=== PATIENT | female | born 1960 | race Caucasian/White ===

== ENCOUNTER 2022-07-17 19:22 | Inpatient (IN) | payer OTHER ==
[~2022-07-17 19:22] MED LIST: Iopamidol-370 76% 500 ML 1 ML ONE
[2022-07-17 19:37] LABS: #Lymphocytes 1.3 thou/uL (1.20-3.40); #Monocytes 0.9 thou/uL (0.11-0.59); #Neutrophils 11.4 thou/uL (1.40-6.50); %Eosinophils 0.1 % (0.0-10.0); %Lymphocytes 9.5 % (21.0-51.0); %Monocytes 6.5 % (0.0-10.0); Hemoglobin 16.4 g/dL (12.0-16.0); Mean Corpuscular HGB CONC 34.7 g/dL (32.0-36.0); Mean Corpuscular Hemoglobin 35.2 pg (27.0-31.0); Mean Platelet Volume 7.6 fL (7.4-10.4); Platelet Count 147 10x3/uL (130-400); RBC Distribution Width 11.7 % (11.5-14.5); Red Blood Cell (RBC) Count 4.67 mill/uL (4.20-5.40); White Blood Cell (WBC) Count 13.6 10x3/uL (4.8-10.8)
[2022-07-17 19:46] LABS: INR-International Normal Ratio 1.1; PTT 30.4 sec (22.9-36.1); Prothrombin Time 14.2 sec (12.0-14.7)
[2022-07-17] MEDS ORDERED: Morphine 4 MG/ML VIAL ONE (19:57)
[2022-07-17 19:58] LABS: ALT (SGPT) 68 U/L (8-55); AST (SGOT) 73 U/L (5-34); Albumin 4.1 g/dL (3.4-4.8); Alkaline Phosphatase 76 U/L (40-110); Anion Gap 15 mmol/L (10-20); BUN (Urea Nitrogen) 11 mg/dL (9.8-20.1); CK (CPK) 765 U/L (29-168); Calc. Creatinine Clearance 0 mL/min (70-130); Calcium 9.9 mg/dL (7.8-10.44); Carbon Dioxide 21 mmol/L (23-31); Chloride 105 mmol/L (98-107); Estimated GFR 103; Globulin 3.7 g/dL (2.4-3.5); Glucose 121 mg/dL (80-115); Potassium 4.1 mmol/L (3.5-5.1); Protein, Total 7.8 g/dL (5.8-8.1); Sodium 137 mmol/L (136-145)
[2022-07-17 20:21] LABS: Bacteria/HPF 4+ HPF (None Seen); Bilirubin Negative (Negative); Blood, Urine 1+ (Negative); Clarity Extra Turbid (Clear); Glucose, Urine (Dipstick) Normal (Negative); Ketone, Urine Negative (Negative); Leukocyte 500 Leu/uL (Negative); Nitrite 2+ (Negative); Protein, Urine (Dipstick) 30 mg/dL (Neg-Trace); RBC/HPF 21-50 HPF (0-3); Squamous Epithelial 0-3 HPF (0-3); Urobilinogen Normal mg/dL (Less than 2); WBC/HPF Greater than 50 HPF (0-3)
[2022-07-17 20:23] LABS: Specific Gravity, Urine 1.054 (1.002-1.036)
[2022-07-17 20:23] LABS: CKMB 9.8 ng/mL (0-6.6)
[2022-07-17 20:27] LABS: Amphetamine Not Detected (NotDetected); Barbiturates Screen Not Detected (NotDetected); Benzodiazepine Screen Not Detected (NotDetected); Cocaine Metabolite Screen Not Detected (NotDetected); Methadone Not Detected (NotDetected); Methamphetamine Not Detected (NotDetected); Opiate Screen Not Detected (NotDetected); Oxycodone Screen Not Detected (NotDetected); Phencyclidine (PCP) Not Detected (NotDetected); THC/Cannabinoid Screen Not Detected (NotDetected); Tricyclic Screen Not Detected (NotDetected)
[2022-07-17] MEDS ORDERED: Aspirin 300 MG Suppository ONE (20:27)
[2022-07-17] MEDS ORDERED: cefTRIAXone\\ROCEPHIN 2 GM VIAL ONE (21:26)
[2022-07-17] MEDS ORDERED: Acetaminophen 650 MG Suppository PR PRN (21:51)
[2022-07-17] MEDS ORDERED: hydrALAZINE 20 MG/ML VIAL SLOW IVP PRN (21:51)
[2022-07-17] MEDS ORDERED: Ondansetron ODT 4 MG TAB PO PRN (21:51)
[2022-07-17] MEDS ORDERED: Ondansetron PF 4 MG/2 ML Vial IVP PRN (21:51)
[2022-07-17 22:06] LABS: SARS-CoV-2 NAA Rapid Test Not Detected (NotDetected)
[2022-07-17 22:51] LABS: Troponin I 1.418 ng/mL (< 0.028)
[2022-07-18] MEDS: Sodium Chloride 0.9% 1,000 ML IV SCH ×4 (01:23→23:03)
[2022-07-18 01:52] LABS: #Lymphocytes 1.9 thou/uL (1.20-3.40); #Monocytes 0.8 thou/uL (0.11-0.59); #Neutrophils 6.3 thou/uL (1.40-6.50); %Eosinophils 0.3 % (0.0-10.0); %Lymphocytes 20.9 % (21.0-51.0); %Monocytes 8.6 % (0.0-10.0); %Neutrophils 70.1 % (42.0-75.0); Hemoglobin 14.7 g/dL (12.0-16.0); Mean Corpuscular HGB CONC 35.4 g/dL (32.0-36.0); Mean Platelet Volume 7.6 fL (7.4-10.4); Platelet Count 122 10x3/uL (130-400); RBC Distribution Width 11.6 % (11.5-14.5); Red Blood Cell (RBC) Count 4.09 mill/uL (4.20-5.40); White Blood Cell (WBC) Count 8.9 10x3/uL (4.8-10.8)
[2022-07-18 02:25] LABS: Troponin I 1.434 ng/mL (< 0.028)
[2022-07-18 02:39] LABS: Anion Gap 13 mmol/L (10-20); BUN (Urea Nitrogen) 10 mg/dL (9.8-20.1); Calc. Creatinine Clearance 0 mL/min (70-130); Calcium 9.2 mg/dL (7.8-10.44); Carbon Dioxide 22 mmol/L (23-31); Cardiac Risk 3.1 (Less than 4.5); Chloride 107 mmol/L (98-107); Cholesterol 178 mg/dl (< 200 Desired); Estimated GFR 105; Glucose 105 mg/dL (80-115); HDL Cholesterol 58 mg/dL (>60 Neg Risk); LDL Cholesterol, Calculated 109 mg/dL; Potassium 3.8 mmol/L (3.5-5.1); Sodium 138 mmol/L (136-145); Triglycerides 54 mg/dL (Less than 150)
[2022-07-18 03:04] LABS: HBCM Index 0.08 S/CO (0-0.79); HBSAg Index 0.24 S/CO (0-0.99); Hep A IgM AB Non-Reactive (NonReactive); Hep A IgM S/CO 0.55 S/CO (0-0.79); Hep B Surf Ag Non-Reactive S/CO (NonReactive); Hepatitis B Core IgM Abs Non-Reactive (NonReactive)
[2022-07-18 03:08] LABS: Hep C IgG Ab Reflex HepC Qnt (NonReactive); Hep C Index 9.56 S/CO (0-0.79)
[2022-07-18 07:58] VITALS: BMI 20.9
[2022-07-18] MEDS: Aspirin 81 mg Enteric Coated Tablet PO SCH (10:44)
[2022-07-18] MEDS ORDERED: Nicotine 14 MG PATCH TD PRN (13:13)
[2022-07-18] MEDS: Acetaminophen 325 MG TAB PO PRN (16:04)
[2022-07-19 05:12] LABS: #Eosinphils 0.2 thou/uL (0.0-0.7); #Lymphocytes 1.2 thou/uL (1.20-3.40); #Monocytes 0.4 thou/uL (0.11-0.59); #Neutrophils 2.2 thou/uL (1.40-6.50); %Basophils 0.6 % (0.0-1.0); %Eosinophils 3.9 % (0.0-10.0); %Lymphocytes 29.2 % (21.0-51.0); %Monocytes 10.2 % (0.0-10.0); %Neutrophils 56.2 % (42.0-75.0); Hemoglobin 13.7 g/dL (12.0-16.0); Mean Corpuscular HGB CONC 33.8 g/dL (32.0-36.0); Mean Corpuscular Hemoglobin 35.2 pg (27.0-31.0); Platelet Count 109 10x3/uL (130-400); RBC Distribution Width 11.6 % (11.5-14.5); Red Blood Cell (RBC) Count 3.88 mill/uL (4.20-5.40)
[2022-07-19 05:33] LABS: Critical Call Chem Troponin I RESULT DECREASING
[2022-07-19 05:36] LABS: ALT (SGPT) 47 U/L (8-55); AST (SGOT) 60 U/L (5-34); Albumin 3.2 g/dL (3.4-4.8); Alkaline Phosphatase 53 U/L (40-110); Anion Gap 11 mmol/L (10-20); BUN (Urea Nitrogen) 5 mg/dL (9.8-20.1); Bilirubin, Total 0.8 mg/dL (0.2-1.2); CK (CPK) 566 U/L (29-168); Calc. Creatinine Clearance 108 mL/min (70-130); Calcium 8.2 mg/dL (7.8-10.44); Carbon Dioxide 21 mmol/L (23-31); Chloride 110 mmol/L (98-107); Estimated GFR 108; Globulin 2.6 g/dL (2.4-3.5); Glucose 95 mg/dL (80-115); Magnesium 1.6 mg/dL (1.6-2.6); Potassium 3.5 mmol/L (3.5-5.1); Protein, Total 5.8 g/dL (5.8-8.1); Sodium 138 mmol/L (136-145)
[2022-07-19 05:51] LABS: CKMB 5.9 ng/mL (0-6.6)
[2022-07-19] MEDS: Sodium Chloride 0.9% 1,000 ML IV SCH ×2 (09:06→19:29)
[2022-07-19] MEDS: Aspirin 81 mg Enteric Coated Tablet PO SCH (09:07)
[2022-07-19] MEDS: Chlorhexidine Gluconate 15 ML UDCUP SSP SCH ×3 (09:07→22:21)
[2022-07-19] MEDS: Senokot S 8.6-50 MG TAB PO SCH ×4 (09:08→22:22)
[2022-07-19] MEDS: Clopidogrel Bisulfate 75 MG TAB PO SCH (09:08)
[2022-07-19] MEDS: Famotidine 20 MG TAB PO SCH ×4 (09:09→22:20)
[2022-07-19] MEDS: Cyanocobalamin (Vitamin B-12) 1,000 MCG TAB PO SCH (09:09)
[2022-07-19] MEDS: Atorvastatin Calcium 40 MG TAB PO SCH ×2 (22:18→22:20)
[2022-07-19] MEDS: cefTRIAXone\\ROCEPHIN 2 GM in Sodium Chloride 0.9% 100 ML IVPB SCH ×2 (22:18→22:50)
[2022-07-19] MEDS: Multivit, Therapeutic 1 TAB PO SCH ×2 (22:19→22:22)
[2022-07-19] MEDS: Folic Acid 1 MG TAB PO SCH ×2 (22:19→22:20)
[2022-07-19] MEDS: traMADol HCl 50 MG TAB PO PRN (23:29)
[2022-07-20] MEDS: Sodium Chloride 0.9% 1,000 ML IV SCH (05:30)
[2022-07-20] MEDS: Cyanocobalamin (Vitamin B-12) 1,000 MCG TAB PO SCH (10:31)
[2022-07-20] MEDS: Clopidogrel Bisulfate 75 MG TAB PO SCH (10:31)
[2022-07-20] MEDS: Aspirin 81 mg Enteric Coated Tablet PO SCH (10:31)
[2022-07-20] MEDS: Famotidine 20 MG TAB PO SCH ×2 (10:31→20:39)
[2022-07-20] MEDS: Senokot S 8.6-50 MG TAB PO SCH ×2 (10:31→20:46)
[2022-07-20] MEDS: Chlorhexidine Gluconate 15 ML UDCUP SSP SCH ×2 (11:28→20:42)
[2022-07-20] MEDS: Cefdinir 300 MG CAP PO SCH (20:38)
[2022-07-20] MEDS: Folic Acid 1 MG TAB PO SCH (20:39)
[2022-07-20] MEDS: Acetaminophen 325 MG TAB PO PRN (20:39)
[2022-07-20] MEDS: Atorvastatin Calcium 40 MG TAB PO SCH (20:39)
[2022-07-20] MEDS: Multivit, Therapeutic 1 TAB PO SCH (20:39)
[2022-07-21 03:05] VITALS: TEMP 97.9
[2022-07-21] MEDS: traMADol HCl 50 MG TAB PO PRN (05:25)
[2022-07-21] MEDS: Cefdinir 300 MG CAP PO SCH (09:57)
[2022-07-21] MEDS: Clopidogrel Bisulfate 75 MG TAB PO SCH (09:57)
[2022-07-21] MEDS: Aspirin 81 mg Enteric Coated Tablet PO SCH (09:57)
[2022-07-21] MEDS: Famotidine 20 MG TAB PO SCH (09:57)
[2022-07-21] MEDS: Cyanocobalamin (Vitamin B-12) 1,000 MCG TAB PO SCH (09:57)
[2022-07-21] MEDS: Chlorhexidine Gluconate 15 ML UDCUP SSP SCH (09:57)
[2022-07-21] MEDS: Senokot S 8.6-50 MG TAB PO SCH (09:58)
[2022-07-21 10:58] VITALS: BP 144/69
[2022-07-21 21:12] LABS: HCV RNA, log10 6.474 (.); Hep C PCR-Quant 2980000 IU/mL (.)
== END 2022-07-21 12:00 | disposition home or self-care (01) | DRG 64 ==
LOC: ERS 19:22 → 2NO 22:19
PROVIDERS: ADMIT Student in an Organized Health Care Education/Training Program; ATTEND Internal Medicine
DX: I63.81 Other cerebral infarction due to occlusion or stenosis of small artery (principal); A41.51 Sepsis due to Escherichia coli [E. coli]; I21.A1 Myocardial infarction type 2; N39.0 Urinary tract infection, site not specified; G81.91 Hemiplegia, unspecified affecting right dominant side; M62.82 Rhabdomyolysis; R64 Cachexia; F17.210 Nicotine dependence, cigarettes, uncomplicated; L40.9 Psoriasis, unspecified; R74.01 Elevation of levels of liver transaminase levels; I67.1 Cerebral aneurysm, nonruptured; R29.810 Facial weakness; R47.81 Slurred speech; K02.9 Dental caries, unspecified; I65.21 Occlusion and stenosis of right carotid artery; E78.5 Hyperlipidemia, unspecified; R76.8 Other specified abnormal immunological findings in serum; Z83.3 Family history of diabetes mellitus; Z20.822 Contact with and (suspected) exposure to COVID-19; M19.90 Unspecified osteoarthritis, unspecified site; I08.1 Rheumatic disorders of both mitral and tricuspid valves; Z79.82 Long term (current) use of aspirin; Z79.02 Long term (current) use of antithrombotics/antiplatelets; Z79.899 Other long term (current) drug therapy; R29.709 NIHSS score 9; Z68.20 Body mass index [BMI] 20.0-20.9, adult; B19.20 Unspecified viral hepatitis C without hepatic coma; Z71.6 Tobacco abuse counseling
CPT/HCPCS: 36415; 51701; 70450; 70496; 70498; 70551; 71045; 72170; 76705; 80048; 80053; 80061; 80074; 80306; 81003; 81015; 82550; 82553; 83036; 83605; 83735; 84484; 85025; 85610; 85730; 87040; 87077; 87086; 87186; 87522; 93005; 93306; 94760; 96374; 96375; J0696; J1650; J2270; J3490; J7050; Q9967; U0002